=== PATIENT | female | born 1950 | race Hispanic/Latino ===

== ENCOUNTER 2017-09-15 13:21 | Outpatient (CLI) | payer MEDICARE ==
--- NOTE | 2017-09-15 14:45 | Ultrasound Report ---
LEFT BREAST ULTRASOUND: 09/15/17 13:21:00 CLINICAL: History of ADH and high risk for breast cancer. Recent abnormal mammogram. COMPARISON: 08/24/17 and 08/31/17 mammograms. FINDINGS: Ultrasound of the left breast(including all four quadrants and the retroareolar area) was performed. No mass or cyst to correlate with the asymmetry in the inner breast approximately 8 cm from the nipple on the CC view. However, an irregular solid mass versus complex cyst is identified at 8:30 o'clock 2 cm from the nipple. It measures 6 x 5 x 6 mm and in retrospect has a mammographic correlate. Ultrasound of the left axilla demonstrated a 2.2 cm lymph node with cortex measuring a maximum 4 mm. IMPRESSION: 1. A 6 mm solid mass versus complex cyst at 8:30 o'clock 2 cm from the nipple. Recommend ultrasound guided aspiration/biopsy. 2. No ultrasound correlate for a mammographic density which is farther from the nipple in the inner left breast. Recommend stereotactic biopsy. BI-RADS 4--Suspicious
== END 2017-09-15 13:22 | disposition home or self-care (01) ==
LOC: SPVWC 13:21
PROVIDERS: ATTEND Surgery
DX: R92.8 Other abnormal and inconclusive findings on diagnostic imaging of breast (principal); C50.412 Malignant neoplasm of upper-outer quadrant of left female breast

== ENCOUNTER 2017-10-08 08:33 | Outpatient (CLI) | payer MEDICARE ==
--- NOTE | 2017-10-08 15:00 | Magnetic Resonance Report ---
MRI GUIDED VACUUM ASSISTED CORE BIOPSY TWO SITES LEFT BREAST: 10/08/17 CLINICAL: History of ADH in suspicious lesions on recent MRI. COMPARISON: 09/29/17 FINDINGS: Consent for the procedure was obtained. A Vibrant dynamic postcontrast series was performed on a 1.5 Ce magnet using an 8 channel [employer] dedicated breast coil. Two lesions were localized and targeted using [employer] biopsy software. Lesion 1 and lesion 2 correlate with the 2 lesions identified on the recent MRI. The skin was anesthetized with 1% lidocaine and small dermatotomies were performed. 2% lidocaine was administered for deeper anesthesia. 9-G biopsy was performed with an [employer] vacuum assisted device. Imaging demonstrated satisfactory positioning of the probe at the two sites and satisfactory samples were obtained. Clips were placed at both sites after confirmation of adequate sampling. The probes were removed and hemostasis was achieved with pressure to the sites. A sterile dressing was applied. The patient tolerated the procedure well and there were no apparent complications. A two view mammogram demonstrated concordant placement of both clips. The patient left the department in good condition with instructions for wound care and follow-up. IMPRESSION: Uncomplicated MRI biopsy with clip placement at two sites left breast.
--- NOTE | 2017-10-08 15:04 | Mammography Report ---
LEFT DIGITAL DIAGNOSTIC MAMMOGRAM: 10/08/17 08:33:00 CLINICAL: For clip placement immediately status post ultrasound biopsy. COMPARISON:09/29/17 MRI and 08/31/17 left mammogram FINDINGS: Biopsy clips are identified in the upper-outer quadrant correlate with the previously described lesions on MRI. However, they are discordant with the previously described inner asymmetry on the CC view of the mammogram. IMPRESSION: Concordant clip placement status post MRI biopsy at 2 sites. BI-RADS CATEGORY: 4--Suspicious Pathology pending.
== END 2017-10-08 08:34 | disposition home or self-care (01) ==
LOC: SPVIMAG 08:33
PROVIDERS: ATTEND Surgery
DX: N63.20 Unspecified lump in the left breast, unspecified quadrant (principal)
CPT/HCPCS: 19085; 19086; 88305; A4648; A9577; G0206; 88361

== ENCOUNTER 2018-01-05 14:07 | Outpatient (CLI) | payer MEDICARE | END 2018-01-05 14:08 | disposition home or self-care (01) | LOC: WOUND 14:07 | PROVIDERS: ATTEND Surgery | DX: T86.821 Skin graft (allograft) (autograft) failure (principal); Y83.2 Surgical operation with anastomosis, bypass or graft as the cause of abnormal reaction of the patient, or of later complication, without mention of misadventure at the time of the procedure | CPT/HCPCS: G0277 ×2; 99183 ==

== ENCOUNTER 2018-01-06 14:58 | Outpatient (CLI) | payer MEDICARE | END 2018-01-06 14:59 | disposition home or self-care (01) | LOC: WOUND 14:58 | PROVIDERS: ATTEND Surgery | DX: T86.821 Skin graft (allograft) (autograft) failure (principal); Y83.2 Surgical operation with anastomosis, bypass or graft as the cause of abnormal reaction of the patient, or of later complication, without mention of misadventure at the time of the procedure | CPT/HCPCS: G0277 ×2; 99183 ==

== ENCOUNTER 2018-01-07 14:40 | Outpatient (CLI) | payer MEDICARE | END 2018-01-07 14:41 | disposition home or self-care (01) | LOC: WOUND 14:40 | PROVIDERS: ATTEND Internal Medicine | DX: T86.821 Skin graft (allograft) (autograft) failure (principal); Y83.2 Surgical operation with anastomosis, bypass or graft as the cause of abnormal reaction of the patient, or of later complication, without mention of misadventure at the time of the procedure | CPT/HCPCS: G0277 ×2; 99183 ==

== ENCOUNTER 2018-01-08 12:46 | Outpatient (CLI) | payer MEDICARE | END 2018-01-08 12:47 | disposition home or self-care (01) | LOC: WOUND 12:46 | PROVIDERS: ATTEND Internal Medicine | DX: T86.821 Skin graft (allograft) (autograft) failure (principal); Y83.2 Surgical operation with anastomosis, bypass or graft as the cause of abnormal reaction of the patient, or of later complication, without mention of misadventure at the time of the procedure | CPT/HCPCS: G0277 ×2; 99183 ==

== ENCOUNTER 2018-01-11 14:45 | Outpatient (CLI) | payer MEDICARE | END 2018-01-11 14:46 | disposition home or self-care (01) | LOC: WOUND 14:45 | PROVIDERS: ATTEND Internal Medicine | DX: T86.821 Skin graft (allograft) (autograft) failure (principal); Y83.2 Surgical operation with anastomosis, bypass or graft as the cause of abnormal reaction of the patient, or of later complication, without mention of misadventure at the time of the procedure | CPT/HCPCS: G0277 ×2; 99183 ==

== ENCOUNTER 2018-01-12 14:53 | Outpatient (CLI) | payer MEDICARE | END 2018-01-12 14:54 | disposition home or self-care (01) | LOC: WOUND 14:53 | PROVIDERS: ATTEND Surgery | DX: T86.821 Skin graft (allograft) (autograft) failure (principal); Y83.2 Surgical operation with anastomosis, bypass or graft as the cause of abnormal reaction of the patient, or of later complication, without mention of misadventure at the time of the procedure | CPT/HCPCS: G0277 ×2; 99183 ==

== ENCOUNTER 2018-01-13 14:34 | Outpatient (CLI) | payer MEDICARE | END 2018-01-13 14:35 | disposition home or self-care (01) | LOC: WOUND 14:34 | PROVIDERS: ATTEND Internal Medicine | DX: T86.821 Skin graft (allograft) (autograft) failure (principal); Y83.2 Surgical operation with anastomosis, bypass or graft as the cause of abnormal reaction of the patient, or of later complication, without mention of misadventure at the time of the procedure | CPT/HCPCS: G0277 ×2; 99183 ==

== ENCOUNTER 2018-01-15 15:12 | Outpatient (CLI) | payer MEDICARE | END 2018-01-15 15:13 | disposition home or self-care (01) | LOC: WOUND 15:12 | PROVIDERS: ATTEND Internal Medicine | DX: T86.821 Skin graft (allograft) (autograft) failure (principal); Y83.2 Surgical operation with anastomosis, bypass or graft as the cause of abnormal reaction of the patient, or of later complication, without mention of misadventure at the time of the procedure | CPT/HCPCS: G0277 ×2; 99183 ==

== ENCOUNTER 2018-01-18 14:41 | Outpatient (CLI) | payer MEDICARE | END 2018-01-18 14:42 | disposition home or self-care (01) | LOC: WOUND 14:41 | PROVIDERS: ATTEND Internal Medicine | DX: T86.821 Skin graft (allograft) (autograft) failure (principal); Y83.2 Surgical operation with anastomosis, bypass or graft as the cause of abnormal reaction of the patient, or of later complication, without mention of misadventure at the time of the procedure | CPT/HCPCS: G0277 ×2; 99183 ==

== ENCOUNTER 2021-01-24 13:07 | Outpatient (CLI) | payer MEDICARE ==
[2021-01-24 14:13] LABS: Mean Corpuscular HGB Conc 36 % (30-34); Mean Corpuscular Volume 96 fl (79-97); Platelet Count 256 K/mm3 (140-440); Red Blood Count 4.43 M/mm3 (3.65-5.03); Red Cell Distribution Width 13.6 % (13.2-15.2)
[2021-01-24 14:31] LABS: Hematocrit 42.7 % (30.3-42.9); Hemoglobin 15.5 gm/dl (10.1-14.3)
--- NOTE | 2021-01-24 15:04 | XRay Report ---
CHEST 2 VIEWS INDICATION / CLINICAL INFORMATION: COUGH. COMPARISON: 01/04/2018 FINDINGS: SUPPORT DEVICES: None. HEART / MEDIASTINUM: No significant abnormality. LUNGS / PLEURA: No significant pulmonary or pleural abnormality. No pneumothorax. ADDITIONAL FINDINGS: No significant additional findings. IMPRESSION: No significant abnormality or interval change from 01/04/2018 Signer Name: Abhishek Prince MD FACR Signed: 01/24/2021 3:00 PM Workstation Name: [id number]
[2021-01-24 18:35] LABS: Alanine Aminotransferase 37 units/L (7-56); Albumin 4.1 g/dL (3.9-5); Blood Urea Nitrogen 13 mg/dL (7-17); Calcium 9.3 mg/dL (8.4-10.2); Chol/HDL Ratio 2.92 %; HDL Cholesterol 63 mg/dL (40-59); Hemolysis Index 8; LDL Cholesterol,Direct 118 mg/dL (50-130)
[2021-01-24 18:42] LABS: BUN/Creatinine Ratio 19
== END 2021-01-24 13:08 | disposition home or self-care (01) ==
LOC: LAB 13:07
PROVIDERS: ATTEND Internal Medicine
DX: R05 Cough (principal)
CPT/HCPCS: 36600; 71046; 80053; 80061; 82550; 82728; 82805; 83615; 83880; 84436; 84443; 84484; 85027; 85379; 86140

== ENCOUNTER → 2022-07-30 | Outpatient (CLI) | payer MEDICARE | END | disposition home or self-care (01) | LOC: SLR 11:00 | PROVIDERS: ATTEND Internal Medicine | DX: G47.30 Sleep apnea, unspecified (principal) | CPT/HCPCS: 95810 ==

== ENCOUNTER 2022-08-01 11:00 | Outpatient (CLI) | payer MEDICARE | END 2022-08-01 11:01 | disposition home or self-care (01) | LOC: SLR 11:00 | PROVIDERS: ATTEND Internal Medicine | DX: G47.33 Obstructive sleep apnea (adult) (pediatric) (principal) | CPT/HCPCS: 95811 ==